=== PATIENT | female | born 1975 | race Caucasian/White ===

== ENCOUNTER 2018-12-08 18:58 | Emergency (ER) | payer MEDICAID ==
[2018-12-08] MEDS: ONDANSETRON (ODT) 4 MG TAB ODT (21:45)
[2018-12-08] MEDS: KETOROLAC 30 MG INJ IM (21:54)
== END 2018-12-08 22:30 | disposition home or self-care (01) ==
LOC: FTE 18:58
DX: R51 Headache (principal); R11.0 Nausea
CPT/HCPCS: 81025; 96372; 99284-25